=== PATIENT | male | born 2000 | race Caucasian/White ===

== ENCOUNTER 2021-01-05 08:27 | Outpatient (CLI) | payer OTHER, SELFPAY ==
--- NOTE | 2021-01-05 08:30 | CT_ITS ---
WS: [id number] CT CHEST WITH INTRAVENOUS CONTRAST HISTORY: R22.1 - Localized swelling, mass and lump, neck TECHNIQUE: Contiguous 5 mm axial imaging performed on the thorax. Coronal and sagittal reformats are submitted. All CT scans at [facility] use at least one of these dose optimization techniq ues: automated exposure control; mA and/or kV adjustment per patient size (includes targeted exams wh ere dose is matched to clinical indication); or iterative reconstruction. CONTRAST: Omnipaque 300; 95 mL IV. DLP: 690.05 mGycm COMPARISON: None available. Lungs and central airway: Normal. Pleura: Normal. No pleural effusion. Heart and pericardium: Normal size heart with no pericardial effusion. Mediastinum and anayeli: No mediastinum or hilar adenopathy. Vessels: Bovine arch. LEFT vertebral artery arises directly from the arch. Chest wall and lower neck: No soft tissue masses identified. Again noted is the cystic adipose tissue over the upper back and lower neck. Upper abdomen: Negative. Osseous structures: No destructive process. CT/CT chest w con* [id number] IMPRESSION: 1. Lungs are clear. No pneumonia. 2. No lymphadenopathy within the chest. 3. Bovine arch and LEFT vertebral artery arises directly from the aorta.
--- NOTE | 2021-01-05 08:50 | CT_ITS ---
WS: [id number] CT NECK WITH CONTRAST HISTORY: R22.1 - Localized swelling, mass and lump, neck TECHNIQUE: Contiguous 5 mm axial images are performed through the neck with intravenous contrast. Sag ittal and coronal reformats are also submitted. All CT scans at [facility] use at least o ne of these dose optimization techniques: automated exposure control; mA and/or kV adjustment per pat ient size (includes targeted exams where dose is matched to clinical indication); or iterative recons truction. CONTRAST: CONTRAST: Omnipaque 300; 95 mL IV. DLP: 3803.02 mGycm COMPARISON: None available. Marker is placed over the palpable mass with the posterior upper back. Palpable mass corresponds to very dense thickened adipose tissue. There is no enhancement or soft tis [place]akota mass component. Nasopharynx, oropharynx, hypopharynx and larynx are unremarkable. No soft tissue masses or abnormal e nhancement. Torus tubarius and fossa of Rosenmuller and parapharyngeal fat are normal. Small bilateral cervical chain lymph nodes. The largest lymph nodes measure 6 to 7 mm at level 2. Sma ller lymph nodes extend into the posterior triangles bilaterally. Thyroid gland and salivary glands are normally enhancing with no masses. No osseous abnormalities. Visualized portions of the skull base demonstrate no abnormalities. Orbits and globes are within norm al limits. No soft tissue masses. Visualized paranasal sinuses and mastoid air cells are normal. Lung apices are clear. CT/CT neck w con* [id number] IMPRESSION: 1. No solid or enhancing mass within the neck. Numerous benign-appearing cervi romario chain lymph nodes. 2. Palpable area in the upper back corresponds to very thick prominent adipose tissue. Consider Humboldt's syndrome and evaluate for elevated cortisol levels.
[2021-01-05] MEDS: iohexol 300 mg/mL 100 mL Btl IV ×2 (09:00→09:23)
== END 2021-01-05 08:28 | disposition home or self-care (01) ==
LOC: RADWPI 08:33
PROVIDERS: PCP Physician Assistant Medical; Visit Provider Surgery
DX: R22.1 Localized swelling, mass and lump, neck (principal)
CPT/HCPCS: 70491; 71260; Q9967